=== PATIENT | male | born 1985 | race African-American/Black ===

== ENCOUNTER 2018-03-18 10:07 | Emergency (ER) | payer OTHER ==
[~2018-03-18] VITALS: Ht 190.5 cm; Wt 105.7 kg
[2018-03-18 11:27] LABS: ABSOLUTE BASOPHIL COUNT 0 /CUMM (0.0-0.2); ABSOLUTE EOSINOPHIL COUNT 0.1 /CUMM (0.0-0.7); ABSOLUTE GRANULOCYTE CT 1.6 /CUMM (1.4-6.5); ABSOLUTE LYMPH COUNT 1.4 /CUMM (1.2-3.4); ABSOLUTE MONOCYTE COUNT 0.3 /CUMM (0.10-0.60); BASOPHIL % 0.9 % (0.0-2.0); GRANULOCYTE % 45.7 % (42.2-75.2); HEMATOCRIT 43.2 % (42-52); MEAN CORPUSCULAR HGB 23.5 PG (27.0-31.0); MEAN CORPUSCULAR HGB CONC 31.8 G/DL (33.0-37.0); MEAN CORPUSCULAR VOLUME 73.8 FL (80.0-94.0); MEAN PLATELET VOLUME 9.5 FL (7.4-10.4); PLATELET COUNT 203 /CUMM (130-400); RBC DISTRIBUTION WIDTH 13.9 % (11.5-14.5); RED BLOOD CELL CT 5.85 /CUMM (4.70-6.10); WHITE BLOOD CELL COUNT 3.4 /CUMM (4.8-10.8)
--- NOTE | 2018-03-18 11:47 | ED ANKLE/FOOT INJURY COMPLAINT ---
History of Present Illness General Chief Complaint: General Adult Stated Complaint: BOTTOM OF FEET ARE SWOLLEN Source: patient Exam Limitations: no limitations Vital Signs & Intake/Output Vital Signs & Intake/Output Vital Signs Date Time Temp Pulse Resp B/P B/P Pulse O2 O2 Flow FiO2 Mean Ox Delivery Rate 03/18 1147 97.4 74 20 120/80 98 Room Air 03/18 1103 98 Room Air 03/18 1015 97.0 70 20 121/78 99 Room Air ED Intake and Output 03/19 0000 03/18 1200 Intake Total 0 Output Total Balance 0 Intake, Oral 0 Patient 233 lb Weight Weight Reported by Patient Measurement Method Allergies Coded Allergies: No Known Allergies (03/18/18) Triage Note: PT TO ED C/O SWELLING TO B/L FEET. NOTICED ON RIGHT SIDE 2 DAYS AGO AND LEFT THIS AM. STATES PAIN TO FEET WITH WEIGHT BEARING. Triage Nurses Notes Reviewed? yes Duration: week(s): (1), changing over time, continues in ED Timing: remote history Severity: mild, moderate Severity Numbers: 4 Pain/Injury Location: Bilateral: Foot. Method of Injury: unknown HPI: 32-year-old male with no medical history presents for evaluation of swelling on the bottom of both of his feet. Patient reports he noticed this a few days ago and has been persistent. He states that the swelling seems to get worse at the end of the day and improves after he sleeps and wakes up in the morning. He reports that he had similar symptoms back when he was a teenager but is then not had any pounds for years. He reports he spent a lot of time on his feet while at work. He states that the swelling is bilateral. He has no difficulty breathing or cough. No history of CHF. No chest pain. No swelling anywhere else. No swelling in his calf. No trauma or triggering event. He does report some pain with ambulating. He has not taken any medicine for this. Past History Travel History Traveled to [place] past 21 day No Medical History Any Pertinent Medical History? see below for history Surgical History Surgical History: non-contributory Psychosocial History What is your primary language Sami Tobacco Use: Current Not Daily Daily Tobacco Use Amount/Type: Cigar or Pipe use daily ETOH Use: denies use Illicit Drug Use: denies illicit drug use Family History Hx Contributory? No Review of Systems Review of Systems Constitutional: Reports: no symptoms. EENTM: Reports: no symptoms. Respiratory: Reports: no symptoms. Cardiovascular: Reports: see HPI (PEDAL EDEMA). GI: Reports: no symptoms. Genitourinary: Reports: no symptoms. Musculoskeletal: Reports: no symptoms. Skin: Reports: no symptoms. Neurological/Psychological: Reports: no symptoms. Hematologic/Endocrine: Reports: no symptoms. Immunologic/Allergic: Reports: no symptoms. All Other Systems: Reviewed and Negative Physical Exam Physical Exam General Appearance: well developed/nourished, no apparent distress, alert, awake , comfortable Head: atraumatic, normal appearance Eyes: Bilateral: normal appearance, EOMI. Ears, Nose, Throat: hearing grossly normal Neck: normal inspection, supple, full range of motion Cardiovascular/Respiratory: normal breath sounds, normal peripheral pulses, regular rate/rhythm, no respiratory distress Back: normal inspection, normal range of motion Leg/Knee/Thigh Left: normal range of motion, normal inspection Leg/Knee/Thigh Right: normal range of motion, normal inspection Ankle Left: normal inspection, normal range of motion Ankle Right: normal inspection, normal range of motion Foot Left: normal inspection, normal range of motion, NO OBSERVABLE SWELLING NO TENDERNESS TO PALPATION NO ERYTHEMA FULL RANGE OF MOTION AND INTACT NEUROVASCULAR SUPPLY INTACT Foot Right: normal inspection, normal range of motion, NO OBSERVABLE SWELLING FULL RANGE OF MOTION INTACT NO TENDERNESS TO PALPATION NO ERYTHEMA Neuro/Vascular: normal motor function, normal sensation Tendon: normal tendon function Psychiatric: awake, alert, oriented x 3 Skin: intact, normal color, warm/dry Progress Differential Diagnosis: DVT, CHF, septic arthritis, fracture, dislocation, sprain, contusion Plan of Care: Orders Procedure Date/time Status TSH REFLEX 03/18 1044 Complete COMPREHENSIVE METABOLIC PANEL 03/18 1044 Complete CBC WITHOUT DIFFERENTIAL 03/18 1044 Complete Laboratory Tests 03/18/18 1103: Anion Gap 5, Estimated GFR > 60, BUN/Creatinine Ratio 9.1, Glucose 106 H, Calcium 9.6, Total Bilirubin 0.9, AST 24, ALT 29, Alkaline Phosphatase 65, Total Protein 7.3, Albumin 4.4, Globulin 2.9, Albumin/Globulin Ratio 1.5, TSH &T3 & Free T4 Intrp 0.679, CBC w Diff NO MAN DIFF REQ, RBC 5.85, MCV 73.8 L, MCH 23.5 L, MCHC 31.8 L, RDW 13.9, MPV 9.5, Gran % 45.7, Lymphocytes % 40.3, Monocytes % 10.1 H, Eosinophils % 3.0, Basophils % 0.9, Absolute Granulocytes 1.6, Absolute Lymphocytes 1.4, Absolute Monocytes 0.3, Absolute Eosinophils 0.1, Absolute Basophils 0 03/18/18 1044: Urine Color Cancelled, Urine Clarity Cancelled, Urine pH Cancelled, Ur Specific [place] Cancelled, Urine Protein Cancelled, Urine Ketones Cancelled, Urine Nitrite Cancelled, Urine Bilirubin Cancelled, Urine Urobilinogen Cancelled, Ur Leukocyte Esterase Cancelled, Ur Microscopic Cancelled, Urine Hemoglobin Cancelled, Urine Glucose Cancelled Patient is here for evaluation of swelling in both of his feet. On exam there is no swelling apparent. Patient denies chest pain or shortness of breath he is young and healthy is not taking any meds there is no trauma. No DVT risk factors. Basic blood work was obtained and is negative. Patient was advised to get compression stockings keep his legs elevated follow-up with the primary care doctor discussed return precautions patient agrees the plan Tylenol Advil for pain. Departure Departure Disposition: HOME OR SELF CARE Condition: Stable Clinical Impression Primary Impression: Pedal edema Referrals: Patient Has No Primary Care Dr (PCP/Family) Additional Instructions: Keep your legs elevated and wear compression stockings. Make a follow-up with your primary care doctor as soon as possible. Monitor your symptoms return with worsening swelling, swelling on one side, redness, chest pain, shortness of breath, fevers or any other concerns. Departure Forms: Customer Survey General Discharge Information
== END 2018-03-18 11:49 ==
LOC: ERH 10:07
PROVIDERS: Physician Assistant Medical
DX: R60.9 Edema, unspecified (principal); F17.290 Nicotine dependence, other tobacco product, uncomplicated